=== PATIENT | female | born 1990 | race Asian ===

== ENCOUNTER 2016-05-31 18:14 | Emergency (ER) | payer MEDICAID, OTHER ==
--- NOTE | 2016-05-31 19:59 | US ---
Exam: Obstetric ultrasound followup Comparison: None Indication: , bleeding, left lower quadrant pain. Concern for left ovarian torsion. Findings: Limited obstetric ultrasound followup was obtained. Real-time sonographic imaging demonstrated an intrauterine , however unfortunately there was no cardiac activity or motion within the fetus. Placenta is located along the right side towards the fundus without evidence of previa. A contraction was noted during the exam. ALEJANDRO with subjectively normal. Measurements of the fetus are as follows: BPD: 2.4 cm, 14 weeks 0 days HC: 9.1 cm, 14 weeks 0 days AC: 7.7 cm, 14 weeks 0 days FL: 1.4 cm, 14 weeks 1 day This combines for a mean gestational age by ultrasound of 14 weeks 1 day with a sonographic SOFY of 11/28/2016. This is within over one month discrepant of clinical dating, which has an EDC of 10/31/2016. Both ovaries are normal in size and demonstrate blood flow. There is no significant free fluid in the pelvis. Impression: 1. Intrauterine demise at approximately 14 weeks 1 day gestation. 2. Ovaries within normal limits. Specifically, blood flow is present within the left ovary without evidence of torsion. Report called to Dr. Marquez 1953 hours 05/31/2016.
[2016-05-31] MEDS ORDERED: IBUPROFEN 600 MG TABLET ONE (20:18)
[2016-05-31] MEDS ORDERED: ACETAMINOPHEN 325 MG TABLET ONE (20:18)
== END 2016-05-31 20:25 | disposition home or self-care (01) ==
LOC: DI 18:14 → ED 18:14 → EDSTATUS 18:23 → ED 20:25
DX: O03.9 Complete or unspecified spontaneous abortion without complication (principal); Z3A.17 17 weeks gestation of pregnancy
CPT/HCPCS: 85018; 86901; 76816; 99283 ×2; 36415; A9270 ×2

== ENCOUNTER 2016-06-01 17:05 | Inpatient (IN) | payer OTHER ==
[2016-06-01] MEDS ORDERED: IV START KIT ONE (17:31)
[2016-06-01] MEDS ORDERED: SODIUM CHLORIDE 0.9% FLUSH 10 ML ONE (17:32)
[2016-06-01] MEDS ORDERED: OXYTOCIN IN LR 500 ML IV ONE ×2 (17:35→18:37)
--- NOTE | 2016-06-01 17:38 | HP ---
MATT TUTTLE [id number] DATE OF : 1990 HISTORY OF PRESENT ILLNESS: This is a 25-year-old female who was seen in the emergency room at [facility] on 05/31/2016 with a history of vaginal bleeding. They did an ultrasound on her and it showed an intrauterine , but no cardiac activity or motion within the fetus. Biparietal diameter is 2.4 cm, measuring 14 weeks. Femoral length is 1.4 cm, also measuring 14 weeks. She is admitted with intrauterine demise for Cytotec, followed by possible D&C and suction D&C. The risks, reasons, complications, living will and alternatives were discussed with the patient and all questions were answered. Dr. Henson is the covering attending contract design agent and she has been notified of the patient. The nursing garment supervisor has been contacted, however, there is no return call yet, and a message was left on her voice mail. OB HISTORY: G-6, P-2, 0-3-2. Three spontaneous abortions. No D&Cs. Two caesarian sections. OPERATIONS TEAM LEADER HISTORY: Menarche 11 x 26 x 5. STDs negative. She does have a history of septate uterus, which was repaired in 2008 by a laparoscopic and hysteroscopic approach. 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 PAST MEDICAL HISTORY: Negative. ALLERGIES: Negative. PAST SURGICAL HISTORY: 1. Questionable hymenectomy or opening of an imperforate hymen. 2. Caesarian section x 2. 3. A laparoscopic and hysteroscopic approach to a septate uterus. SOCIAL HISTORY: Nonsmoker. Occasional alcohol use. FAMILY HISTORY: Negative. REVIEW OF SYSTEMS: Brown vaginal discharge, otherwise noncontributory, except for occasional cramps. PHYSICAL EXAMINATION: GENERAL: A healthy female in no acute distress. HEENT: Normal. NECK: Supple. Thyroid not palpable. BREASTS: Soft. No masses. HEART: Regular sinus rhythm. No murmurs. LUNGS: Clear. ABDOMEN: Benign. PELVIC: External genitalia healthy. Brownish-red discharge noted in the vagina, and the cervix is closed. The uterus is 12 week size and anteverted. Adnexa negative. IMPRESSION: Intrauterine demise at 14 weeks and one day by ultrasound measurements. PLAN: Misoprostol and possible D&C and suction D&C depending on patient's preference and attending doctor decision.
[2016-06-01 18:04] VITALS: BMI 26.2
[2016-06-01] MEDS ORDERED: MINERAL OIL 25 ML BOT ONE (18:36)
[2016-06-01] MEDS ORDERED: LIDOCAINE Viscous 2% 15 ML UDCUP ONE (18:36)
[2016-06-01] MEDS ORDERED: OXYTOCIN 10 UNITS/ML VIAL ONE (18:36)
[2016-06-01] MEDS ORDERED: LIDOCAINE 1% (PRES FREE) 30 ML VIAL ONE (18:36)
[2016-06-01 18:37] LABS: HEMATOCRIT 36.4 % (37.0-47.0); HEMOGLOBIN 12.2 gm/l (12.0-16.0); MEAN CELL VOLUME 87.9 fl (81.0-99.0); MEAN CORPUSCULAR HEMOGLOBIN 29.5 pg (27.0-31.0); MEAN CORPUSCULAR HGB CONC 33.5 g/dl (33.0-37.0); RED CELL DISTRIBUTION WIDTH 12.3 % (11.5-14.5)
[2016-06-01] MEDS ORDERED: PUMP TUBING ONE (18:37)
[2016-06-01] MEDS: MISOPROSTOL 200 MCG TABLET PO SCH ×2 (19:44→21:04)
[2016-06-01] MEDS ORDERED: MISOPROSTOL 200 MCG TABLET VG SCH (21:00)
[2016-06-01] MEDS: FENTANYL 100 MCG/2 ML VIAL IV PRN ×2 (21:05→21:41)
--- NOTE | 2016-06-01 21:52 | PDOC36 ---
Provider Note Subject: Called by RN in regards to "a lot of vaginal bleeding." Patient starting to feel very uncomfortable. Improved by fentanyl. VSS SVE: large bag bulging through dilated cervical os A/P: 25yo @ approx 16 wks with missed in for IOL -s/p cytotec 800 SL -Anticipate soon.
[2016-06-01] MEDS: LACTATED RINGERS 1,000 ML IV PRN ×2 (22:32→23:47)
[2016-06-01] MEDS ORDERED: MORPHINE SULFATE 4 MG/ML SYRINGE IV ONE (23:14)
--- NOTE | 2016-06-01 23:27 | PCMDEL ---
Delivery Note - Delivery Delivery (Date): 06/01/16 Delivery (Time): 23:20 Infant Gender: Female Delayed Cord Clamping:: Not Performed EBL:: 1000 Perineum:: intact Comments:: Patient presented for IOL after being diagnosed with IUFD after an episode of vaginal bleeding this morning. 800mcg of cytotec was placed sublingually. The patient began to experience contractions, pelvic pressure and vaginal bleeding. At 2320, patient delivered a nonviable female . Will wait 1 hour for passage of placenta or will take back to OR for D&C for retained placenta.
--- NOTE | 2016-06-02 00:40 | PDOC36 ---
Provider Note Subject: Waited 75 minutes for delivery of placenta which has not occurred. Will take patient back to OR for D&C for retained placenta. Anesthesia team notified. Consents obtained. Patient has lost approx 1700 cc of blood at this point. Stat H&H drawn.
[2016-06-02 00:47] LABS: HEMATOCRIT 26.7 % (37.0-47.0); HEMOGLOBIN 9.1 gm/l (12.0-16.0)
[2016-06-02] MEDS: LACTATED RINGERS 1,000 ML IV PRN ×2 (00:59→03:04)
[2016-06-02] MEDS ORDERED: SPINAL PROCEDURAL TRAY 1 EACH ONE (01:09)
[2016-06-02] MEDS ORDERED: FENTANYL 250 MCG/5 ML AMP ONE (01:09)
[2016-06-02] MEDS ORDERED: MIDAZOLAM HCL 5 MG/5 ML VIAL ONE (01:10)
[2016-06-02] MEDS ORDERED: EPHEDRINE SULFATE UD SYR 25 MG 25 MG/5 ML SYRINGE IV ONE (01:30)
--- NOTE | 2016-06-02 02:00 | PCMBPN ---
Brief Post Op Note: Date of Procedure: 06/02/16 Start Time: [] Preoperative Diagnosis: 1. [retained placenta] Postoperative Diagnosis: 1. [Same] Procedure: [D&C] Surgeon: Madeleine Henson DO Assist:[] Anesthesia: [spinal] Findings: [retained placenta] Condition: [stablee] Complications: [] IV Fluids: [500] mLs of LR [] Urine Output: [200] mLs Estimated Blood Loss: [200] mLs Tourniquet Time: [N/A] Specimens: [N/A] Implants: [] Drains: [N/A] JOB#[id number]
[2016-06-02] MEDS ORDERED: BENZOCAINE/MENTHOL 60 APPLIC/BOT TP PRN (03:09)
[2016-06-02] MEDS ORDERED: HYDROMORPHONE HCL 1 MG/ML SYRINGE ONE (03:09)
[2016-06-02] MEDS ORDERED: LANOLIN 50 APPLIC/7G TUBE TP PRN (03:09)
[2016-06-02] MEDS ORDERED: ACETAMINOPHEN 325 MG TABLET PO PRN (03:09)
[2016-06-02] MEDS ORDERED: OXYCODONE/ACETAMINOPHEN 5/325 MG TABLET PO PRN (03:09)
[2016-06-02] MEDS ORDERED: IBUPROFEN 800 MG TABLET PO PRN (03:09)
[2016-06-02] MEDS: HYDROMORPHONE HCL 1 MG/ML SYRINGE IV PRN ×2 (03:25→03:51)
[2016-06-02] MEDS ORDERED: LACTATED RINGERS 1,000 ML IV PRN (03:28)
[2016-06-02] MEDS ORDERED: FENTANYL 100 MCG/2 ML VIAL IV PRN (06:10)
--- NOTE | 2016-06-02 10:03 | PDOC39B ---
Hospital Course: ADMIT DATE: 06/01/16 DISCHARGE DATE: [] ADMISSION DIAGNOSES: [] PROCEDURES: [] HISTORY OF PRESENT ILLNESS: 25 year old G6 T2 L2 at 17 weeks 4 days presenting with [IUFD] HOSPITAL COURSE: The patient [presented for IOL for IUFD noted after stat US after patient experienced vaginal bleeding. The patient received a dose of 800 mcg of cytotec SL and began reggie. She delivered the fetus at 2320 on . She was given 90 minutes to pass the placenta without intervention, but did not. She was consented for a D&C and taken back to the OR where she received the procedure. The placenta was removed and several passes were made with a sharp curette. The patient was hemostatic at the completion of the procedure. Her pain is well controlled. She has scant lochia. She is requesting discharge home.] By day of discharge the patient is ambulating, eating, voiding, and passing flatus without difficulty. Pain is controlled and lochia is appropriate. - Physical Exam Vital Signs: Temp Pulse Resp BP Pulse Ox 98.1 F 78 18 101/59 06/02/16 07:45 06/02/16 07:45 06/02/16 07:45 06/02/16 07:45 General: Afebrile Psych/Mental Status: Mood/Affect Appropriate, Judgment/Insight Intact, Bonding Well Neurological: Grossly Intact, Alert, Oriented x 4 HEENT: Atraumatic, PERRLA, EOMI, Mucous membr. moist/pink Lungs: Clear to Auscultation Bilaterally, Normal Air Movement Cardiovascular: Regular Rate and Rhythm, Normal S1, Normal S2 Fundus: Firm, Below Umbilicus Abdomen: Normal Bowel Sounds Lochia: Light Extremities: Full ROM Skin: Normal Color, Warm, Dry, Intact - Discharge Diagnosis (1) Intrauterine in , delivered Status: Acute (2) Anemia Status: Acute - Discharge Plan Condition: Stable Disposition: Home Prescriptions: Ferrous Gluconate [Iron] 256 mg PO DAILY #90 tablet Follow-Up: Madeleine Henson DO [Staff Physician] -
--- NOTE | 2016-06-02 10:06 | OP ---
MATT TUTTLE : 1990 DATE OF OPERATION: June 02, 2016 PREOPERATIVE DIAGNOSIS: Retained placenta. POST OPERATIVE DIAGNOSIS: Retained placenta. OPERATION PERFORMED: Dilation and curettage. SURGEON: Bryanna Henson D.O. ANESTHESIA: Spinal. FINDINGS: Retained placenta. CONDITION: Stable. INTRAVENOUS FLUIDS: 500 mL of lactated Ringer's URINE OUTPUT: 200 mL. ESTIMATED BLOOD LOSS: 200 mL during the procedure, approximately 2 liters of blood loss for the duration of her delivery. SPECIMENS: None. IMPLANTS: None. DRAINS: None. PROCEDURE: Patient was taken to the operating room with IV fluids running where spinal anesthesia was easily obtained. She was prepped and draped in a dorsal lithotomy position in a normal sterile fashion. A weighted speculum was placed in the posterior aspect of the vaginal. A right angle retractor was placed in the anterior aspect of the vagina, and placenta was easily visualized coming through the cervical os. The visible placenta was grasped with a ring forceps and eased through the cervical canal. The majority of the placenta was able to be removed with a ring forceps. A sharp curette was then gently introduced into the uterine cavity and several passes were made until a curetted shot sound was noted in all aspects of the endometrium. At this point, the procedure was determined to be complete as the patient was hemostatic. All instruments were removed from the patient's vagina, and she was transferred to recovery in stable condition.
[2016-06-02 10:38] LABS: HEMATOCRIT 23.1 % (37.0-47.0); HEMOGLOBIN 7.7 gm/l (12.0-16.0)
[2016-06-02 11:21] VITALS: BP 112/63
== END 2016-06-02 11:15 | disposition home or self-care (01) | DRG 770 ==
LOC: FBC 17:05
PROVIDERS: ADMIT Obstetrics & Gynecology; ATTEND Obstetrics & Gynecology
PROC: 10E0XZZ Delivery of Products of Conception, External Approach (ICD-10-PCS; principal; 2016-06-01)
PROC: 3E0P7GC Introduction of Other Therapeutic Substance into Female Reproductive, Via Natural or Artificial Opening (ICD-10-PCS; 2016-06-01)
PROC: 10D17ZZ Extraction of Products of Conception, Retained, Via Natural or Artificial Opening (ICD-10-PCS; 2016-06-02)
DX: O02.1 Missed abortion (principal); O72.0 Third-stage hemorrhage; Z3A.14 14 weeks gestation of pregnancy; O09.41 Supervision of pregnancy with grand multiparity, first trimester; Z37.1 Single stillbirth